=== PATIENT | male | born 1970 | race African-American/Black ===

== ENCOUNTER 2019-03-06 16:06 | Emergency (ER) | payer MEDICAID ==
[~2019-03-06] VITALS: Ht 188 cm; Wt 79.0 kg
[2019-03-06] MEDS ORDERED: ACETAMINOPHEN 325MG TABLET PO STA (18:21)
[2019-03-06] MEDS ORDERED: CEFAZOLIN 1000MG PREMIX 50 ML IV ONE (18:30)
[2019-03-06 18:58] LABS: CHLORIDE 108 mEq/L (98-107)
[2019-03-06 19:00] LABS: PROTHROMBIN TIME 10.1 sec (9.6-11.0)
[2019-03-06 19:04] LABS: BASOPHILS % 0.6 % (0.0-2.0); EOSINOPHILS % 0.3 % (0.0-5.0); HEMATOCRIT. 42.5 % (42.0-52.0); HEMOGLOBIN. 14.1 g/dL (14.0-18.0); LYMPHOCYTES % 16.2 % (20.0-50.0); MEAN CORPUSCULAR HEMOGLOBIN 29.7 pg (28.0-32.0); MEAN CORPUSCULAR VOLUME 89.6 fL (80.0-94.0); MEAN PLATELET VOLUME 8.9 fl (7.4-10.4); MONOCYTES % 4.4 % (2.0-8.0); NEUTROPHILS % 78.5 % (40.0-76.0); PLATELET 236 x1000/uL (130-400); RED BLOOD CELL COUNT 4.74 mill/uL (4.7-6.1); RED CELL DISTRIBUTION WIDTH 13.9 % (11.6-14.6)
[2019-03-06] MEDS ORDERED: IBUPROFEN 600MG TABLET PO ONE (22:15)
[2019-03-06 23:52] VITALS: BP 128/83
== END 2019-03-07 00:04 | disposition short-term general hospital (02) ==
LOC: ER 16:06
DX: S06.9X9A Unspecified intracranial injury with loss of consciousness of unspecified duration, initial encounter (principal); S01.312A Laceration without foreign body of left ear, initial encounter; Y04.0XXA Assault by unarmed brawl or fight, initial encounter; Y93.89 Activity, other specified; Y92.89 Other specified places as the place of occurrence of the external cause
CPT/HCPCS: 36415; 70450; 70486; 80053; 85025; 85610; 96365; 96366; 99285; A4217; J0690; Z7610